=== PATIENT | male | born 1995 | race Caucasian/White ===

== ENCOUNTER 2017-05-23 17:56 | Emergency (ER) | payer SELFPAY ==
[~2017-05-23] VITALS: Ht 185.4 cm; Wt 70.5 kg
[2017-05-23] MEDS ORDERED: NORCO 325 MG-51 TAB PO (18:20)
[2017-05-23] MEDS ORDERED: AMOXICILLIN 50500 MG PO (18:20)
[2017-05-23 18:21] VITALS: BP 147/78; PULSE 74; TEMP 98.7
== END 2017-05-23 18:28 | disposition home or self-care (01) ==
LOC: COL.ER 17:56
DX: K02.9 Dental caries, unspecified (principal); Z87.891 Personal history of nicotine dependence

== ENCOUNTER 2020-06-14 09:26 | Emergency (ER) | payer SELFPAY ==
[~2020-06-14] VITALS: Ht 185.4 cm; Wt 72.7 kg
[~2020-06-14 09:26] MED LIST: AMOXICILLIN 50500 MG PO; NORCO 325 MG-51 TAB PO
[2020-06-14 09:34] VITALS: TEMP 98
[2020-06-14 10:57] LABS: BASO % 0.8 % (0.0-2.0); EOS # 0.1 (0.0-0.7); EOS % 1.8 % (0-4.0); GRAN % 58.7 % (42.2-75.2); HEMATOCRIT 39.6 % (42.0-52.0); HEMOGLOBIN 13.6 g/dl (13.5-18.0); LYMPH # 1.5 (1.2-3.4); LYMPH % 28.7 % (20.0-51.0); MEAN CELL VOLUME 92 fl (80.0-100.0); MEAN CORPUSCULAR HEMOGLOBIN 32 pg (27.0-31.0); MEAN CORPUSCULAR HGB CONC 34 g/dl (33.0-37.0); MEAN PLATELET VOLUME 10.6 fl (7.4-10.4); MONO # 0.5 (0.1-0.6); PLATELET COUNT 172 K/mm3 (130-400); RED BLOOD COUNT 4.29 M/mm3 (4.20-5.60); REDCELL DISTRIBUTION WIDTH-CV 11.7 % (11.5-14.5)
[2020-06-14 10:59] LABS: COLLECTION METHOD CLEAN CATCH
[2020-06-14 11:04] LABS: PH 6 (5-8); SQUAMOUS EPITHELIAL 0-2 /hpf; URINE APPEARANCE Clear; URINE BACTERIA None Seen /hpf; URINE BILIRUBIN Negative (NEGATIVE); URINE BLOOD Negative (NEGATIVE); URINE COLOR Yellow; URINE GLUCOSE Negative (NEGATIVE); URINE KETONE Negative (NEGATIVE); URINE LEUKOCYTE ESTERASE Negative (NEGATIVE); URINE NITRATE Negative (NEGATIVE); URINE PROTEIN(semi-quant) Negative (NEGATIVE); URINE RBC None Seen /hpf; URINE UROBILINOGEN Negative (NEGATIVE)
[2020-06-14 11:32] LABS: ALBUMIN 4.1 gm/dL (3.5-5.0); BILIRUBIN,TOTAL 0.1 mg/dL (0.0-1.0); CALCIUM 9.2 mg/dL (8.4-10.2); CREATININE, serum 0.74 (0.66-1.25); POTASSIUM 4.1 mmol/L (3.4-5.0); TOTAL PROTEIN 6.7 gm/dL (6.4-8.2)
[2020-06-14] MEDS ORDERED: NORCO 325 MG-51 TAB PO ×5 (12:52→14:05)
[2020-06-14 13:03] VITALS: BP 142/69; PULSE 59
== END 2020-06-14 13:03 | disposition home or self-care (01) ==
LOC: COL.ER 09:26
PROVIDERS: Physician Assistant
DX: K40.90 Unilateral inguinal hernia, without obstruction or gangrene, not specified as recurrent (principal); Z87.891 Personal history of nicotine dependence
CPT/HCPCS: Q9967

== ENCOUNTER 2020-06-25 10:17 | Day surgery (SDC) | payer SELFPAY ==
[~2020-06-25] VITALS: Ht 185.4 cm; Wt 69.3 kg
[2020-06-25 11:16] VITALS: BP 132/74; PULSE 86; TEMP 97.3
[2020-06-25] MEDS ORDERED: NORCO 325 MG-51 TAB PO ×2 (11:28→14:15)
--- NOTE | 2020-06-25 11:29 | NUR ---
TO RM 6 AT 1047- CALL LIGHT IN REACH GIRLFRIEND AT BEDSIDE.
[2020-06-25] MEDS ORDERED: MOTRIN 600600 MG/TAB PO (14:15)
[2020-06-25 14:16] VITALS: BP 101/47; PULSE 59; TEMP 98.1
--- NOTE | 2020-06-25 14:16 | NUR ---
Pt to [facility] via cart from OR. Pt drowsy, but awakens easily. Denies pain or nausea. Exofen glue to right groin site is clean, dry, and intact. Pt takes sips of water without difficulties. in room. Will continue to monitor. Call light within reach.
[2020-06-25 14:30] VITALS: BP 112/65; PULSE 52
--- NOTE | 2020-06-25 14:30 | NUR ---
Pt continued to rest. Denies needs. Call light within reach.
[2020-06-25 14:45] VITALS: BP 110/77; PULSE 44
--- NOTE | 2020-06-25 14:45 | NUR ---
Pt continues to rest. Denies needs. Call light within reach.
[2020-06-25 15:00] VITALS: BP 110/54; PULSE 54
--- NOTE | 2020-06-25 15:00 | NUR ---
Pt continues to rest. Denies needs. Call light within reach.
[2020-06-25 15:31] VITALS: BP 109/63; PULSE 56
--- NOTE | 2020-06-25 15:31 | NUR ---
Pt up to restroom with stand by assistance. Pt voids without difficulties. Pt back to room. Applesauce given per pt request. Will continue to monitor.
--- NOTE | 2020-06-25 16:00 | NUR ---
Discharge instructions reviewed with pt. Pt voices understanding. IV site discontinued with all parts intact. Pt up to dress. Call light within reach.
--- NOTE | 2020-06-25 16:33 | NUR ---
Pt escorted to private car via wheel chair. Pt accompanied home by his .
== END 2020-06-25 16:30 | disposition home or self-care (01) ==
LOC: SDCO 10:17
DX: K40.90 Unilateral inguinal hernia, without obstruction or gangrene, not specified as recurrent (principal); Z20.822 Contact with and (suspected) exposure to COVID-19; Z87.891 Personal history of nicotine dependence
CPT/HCPCS: C1781; J0690; J1885; J2704; J3010; J7120

== ENCOUNTER 2021-03-12 10:40 | Emergency (ER) | payer SELFPAY ==
[~2021-03-12] VITALS: Ht 185.4 cm; Wt 72.7 kg
[~2021-03-12 10:40] MED LIST changes: +MOTRIN 600600 MG/TAB PO
[2021-03-12] MEDS ORDERED: AMOXICILLIN 50500 MG PO (11:41)
[2021-03-12] MEDS ORDERED: PERCOCET 325 MG1 TA2 PO (11:41)
[2021-03-12 12:00] VITALS: BP 138/64; PULSE 76; TEMP 97.9
== END 2021-03-12 12:43 | disposition home or self-care (01) ==
LOC: COL.ER 10:40
DX: K08.89 Other specified disorders of teeth and supporting structures (principal)

== ENCOUNTER 2021-03-17 19:20 | Emergency (ER) | payer SELFPAY ==
[~2021-03-17] VITALS: Ht 185.4 cm; Wt 72.7 kg
[~2021-03-17 19:20] MED LIST changes: +PERCOCET 325 MG1 TA2 PO
[2021-03-17] MEDS ORDERED: CLEOCIN HCL300 MG PO (20:43)
[2021-03-17 20:54] VITALS: BP 119/72; PULSE 74; TEMP 98.8
== END 2021-03-17 20:54 | disposition home or self-care (01) ==
LOC: COL.ER 19:20
DX: K02.9 Dental caries, unspecified (principal)